=== PATIENT | female | born 1995 | race Caucasian/White ===

== ENCOUNTER 2017-01-16 05:11 | Emergency (ER) | payer OTHER ==
[2017-01-16] MEDS ORDERED: Pepcid 20 MG VIAL IV ONE ×2 (05:20→05:33)
[2017-01-16] MEDS ORDERED: Sodium Chloride 0.9% 1000 ML 1,000 ML IV STA (05:20)
[2017-01-16] MEDS ORDERED: BENADRYL 50 MG/ML IV ONE (05:28)
[2017-01-16] MEDS ORDERED: Hydromorphone 1 mg/ml Ampule IV ONE (05:28)
[2017-01-16] MEDS ORDERED: Sodium Chloride 0.9% 1000 ML 1,000 ML ONE (05:33)
[2017-01-16] MEDS ORDERED: BENADRYL 50 MG/ML ONE (05:33)
[2017-01-16] MEDS ORDERED: Hydromorphone 1 mg/ml Ampule ONE (05:33)
[2017-01-16 05:37] LABS: BASOPHIL % 0.2 % (0.0-0.4); Granulocytes % 55.8 % (36.0-66.0); Lymphocytes % 32.8 % (24.0-44.0); Mean Cell Volume 78.4 fl (78-100); Mean Corpuscular Hemoglobin 26.2 pg (26-32); Mean Platelet Volume 10.3 fl (6-9.5); Monocytes % 8.2 % (0.0-12.0); Platelet Count 298 K/mm3 (150-450); Red Blood Count 5.38 M/mm3 (4.1-5.4); Red Cell Distribution Width 14.9 % (11.5-14.0); White Blood Count 8.2 K/mm3 (4.0-10.5)
--- NOTE | 2017-01-16 05:53 | ERPHSYRPT ---
- History of Present Illness Time Seen by Provider: 01/16/17 05:17 Source: patient, family (father) Patient Subjective Stated Complaint: states that she had onset of epigastric pain at 2200 last night and getting worse through the night with onset of nausea this morning Triage Nursing Assessment: ambulatory to treatment area - steady gait - moves all extremities with equal strength. alert/oriented - tearful affect. skin pwd - no rash/injury. resps easy - shallow per pain Physician History: CC: chest pain Hx: 21 y/o patient of SHASHA Alvarado with sharp rather severe substernal chest pain without radiation. Started in afternoon, worse after eating supper (biscuit & gravy). She takes GERD medication. Prior - bottle feeding. She has no shortness of breath or cough. No hx of this pain in the past. No back pain. Timing/Duration: yesterday Severity: moderate, severe Allergies/Adverse Reactions: No Known Drug Allergies Allergy (Unverified 01/16/17 05:14) Home Medications: No Reportable Medications [No Reported Medications] 01/16/17 [History] Hx Tetanus, Diphtheria Vaccination/Date Given: Yes Hx Influenza Vaccination/Date Given: No Hx Pneumococcal Vaccination/Date Given: No Immunizations Up to Date: Yes - Review of Systems Constitutional: Malaise, No Fever, No Chills Eyes: No Symptoms Ears, Nose, & Throat: No Throat Pain Respiratory: No Cough, No Dyspnea Cardiac: Chest Pain, No Edema, No Palpitations, No Syncope Abdominal/Gastrointestinal: Abdominal Pain (upper), No Nausea, No Vomiting, No Diarrhea Genitourinary Symptoms: No Dysuria, No Hematuria, No Skin: No Rash Neurological: No Headache All Other Systems: Reviewed and Negative - Past Medical History Pertinent Past Medical History: No - Past Surgical History Past Surgical History: Yes Female Surgical History: Section Other Surgical History: TONSILS - Social History Smoking Status: Never smoker Exposure to second hand smoke: No Drug Use: none Patient Lives Alone: No - Female History Hx Last Menstrual Period: 2 weeks - Nursing Vital Signs Nursing Vital Signs: Initial Vital Signs Temperature 98.3 F Temperature Source Oral Pulse Rate [Right Radial] 90 Pulse Rate 58 Respiratory Rate 16 Blood Pressure [Right Arm] 126/84 Pain Intensity 4 - Physical Exam General Appearance: alert Eye Exam: PERRL/EOMI Ears, Nose, Throat Exam: normal ENT inspection, moist mucous membranes Neck Exam: normal inspection, non-tender, supple Respiratory Exam: normal breath sounds, lungs clear Cardiovascular Exam: regular rate/rhythm Gastrointestinal/Abdomen Exam: soft, tenderness (epigastric/RUQ with some soto 's sign), No mass Extremity Exam: normal inspection, normal range of motion, calf tenderness, No pedal edema Neurologic Exam: alert, oriented x 3, cooperative, sensation nml, No motor deficits Skin Exam: warm, dry, No rash SpO2 Interpretation: normal SpO2: 100 Oxygen Delivery: Room Air - Course Nursing assessment & vital signs reviewed: Yes EKG Interpreted by Me: RATE, Sinus Rhythm (62), NORMAL AXIS, NORMAL INTERVALS ( QTc 393), NORMAL QRS, NORMAL ST-T - Radiology Exams AAS X-ray Interpretation: Reviewed by me, Negative, No Pneumothorax, Nml Mediastinum Ordered Tests: Active Orders 24 hr Category Date Time Status Clean Catch Urine Specimen STAT Care 01/16/17 05:20 Active EKG-ER Only STAT Care 01/16/17 05:20 Active IV Insertion STAT Care 01/16/17 05:20 Active OBSTR/ACUTE ABDOMEN SERIES Stat Exams 01/16/17 05:28 Taken CBC W DIFF Stat Lab 01/16/17 05:30 Completed CMP Stat Lab 01/16/17 05:30 Completed HCG QUALITATIVE,SERUM Stat Lab 01/16/17 05:30 Completed LIPASE Stat Lab 01/16/17 05:30 Completed UA Stat Lab 01/16/17 06:15 Completed Medication Summary Discontinued Medications Generic Name Dose Route Start Last Admin Trade Name Erosq PRN Reason Stop Dose Admin Diphenhydramine HCl 25 mg 01/16/17 05:28 01/16/17 05:43 Benadryl 50 Mg/Ml IV 01/16/17 05:29 25 mg STAT ONE Administration Diphenhydramine HCl Confirm 01/16/17 05:33 Benadryl 50 Mg/Ml Administered 01/16/17 05:34 Dose 50 mg .ROUTE .STK-MED ONE Famotidine 20 mg 01/16/17 05:20 01/16/17 05:44 Pepcid 20 Mg Vial IV 01/16/17 05:21 20 mg STAT ONE Administration Famotidine Confirm 01/16/17 05:33 Pepcid 20 Mg Vial Administered 01/16/17 05:34 Dose 20 mg IV .STK-MED ONE Hydromorphone HCl 1 mg 01/16/17 05:28 01/16/17 05:44 Hydromorphone 1 Mg/Ml Ampule IV 01/16/17 05:29 1 mg STAT ONE Administration Hydromorphone HCl Confirm 01/16/17 05:33 Hydromorphone 1 Mg/Ml Ampule Administered 01/16/17 05:34 Dose 1 mg .ROUTE .STK-MED ONE Sodium Chloride 1,000 mls @ 999 mls/hr 01/16/17 05:20 01/16/17 05:44 Sodium Chloride 0.9% 1000 Ml IV 01/16/17 06:20 999 mls/hr .Q1H1M STA Administration Sodium Chloride Confirm 01/16/17 05:33 Sodium Chloride 0.9% 1000 Ml Administered 01/16/17 05:34 Dose 1,000 mls @ ud .ROUTE .STK-MED ONE Lab/Rad Data: Laboratory Result Diagrams 01/16/17 05:30 01/16/17 05:30 Laboratory Results 01/16/17 01/16/17 01/16/17 Range/Units 06:15 05:30 05:30 WBC (4.0-10.5) K/mm3 RBC (4.1-5.4) M/mm3 Hgb (12.0-16.0) gm/dl Hct (35-47) % MCV (78-100) fl MCH (26-32) pg MCHC (32-36) g/dl RDW (11.5-14.0) % Plt Count (150-450) K/mm3 MPV (6-9.5) fl Gran % (36.0-66.0) % Lymphocytes % (24.0-44.0) % Monocytes % (0.0-12.0) % Eosinophils % (0.00-5.0) % Basophils % (0.0-0.4) % Basophils # (0-0.4) Sodium 141 (136-145) mEq/L Potassium 4.3 (3.5-5.1) mEq/L Chloride 104 (98-107) mEq/L Carbon Dioxide 25.5 (21-32) mEq/L Anion Gap 15.6 H (5-15) MEQ/L BUN 10 (9-20) mg/dL Creatinine 0.76 (0.55-1.30) mg/dl Estimated GFR > 60 ML/MIN Glucose 108 (70-110) MG/DL Calcium 9.5 (8.5-10.1) mg/dL Total Bilirubin 0.4 (0.2-1.0) mg/dL AST 31 (15-37) U/L ALT 40 (12-78) U/L Alkaline Phosphatase 82 (46-116) U/L Serum Total Protein 7.9 (6.4-8.2) gm/dL Albumin 3.7 (3.4-5.0) g/dL Lipase 219 (73-393) U/L Serum , Qual NEGATIVE (Negative) Ur Collection Type CLEAN CATCH Urine Color YELLOW (YELLOW) Urine Appearance HAZY (CLEAR) Urine pH 5.5 (5-6) Ur Specific [place] >=1.030 (1.005-1.025) Urine Protein NEGATIVE (Negative) Urine Glucose (UA) NEGATIVE (NEGATIVE) mg/dL Urine Ketones NEGATIVE (NEGATIVE) Urine Nitrite NEGATIVE (NEGATIVE) Urine Bilirubin NEGATIVE (NEGATIVE) Urine Urobilinogen 0.2 (0-1) mg/dL Urine WBC (Auto) NEGATIVE (NEGATIVE) Urine RBC (Auto) NEGATIVE (0-5) Juan/ul Specimen Received 01/16/17 0615 01/16/17 Range/Units 05:30 WBC 8.2 (4.0-10.5) K/mm3 RBC 5.38 (4.1-5.4) M/mm3 Hgb 14.1 (12.0-16.0) gm/dl Hct 42.2 (35-47) % MCV 78.4 (78-100) fl MCH 26.2 (26-32) pg MCHC 33.4 (32-36) g/dl RDW 14.9 H (11.5-14.0) % Plt Count 298 (150-450) K/mm3 MPV 10.3 H (6-9.5) fl Gran % 55.8 (36.0-66.0) % Lymphocytes % 32.8 (24.0-44.0) % Monocytes % 8.2 (0.0-12.0) % Eosinophils % 3.0 (0.00-5.0) % Basophils % 0.2 (0.0-0.4) % Basophils # 0.02 (0-0.4) Sodium (136-145) mEq/L Potassium (3.5-5.1) mEq/L Chloride (98-107) mEq/L Carbon Dioxide (21-32) mEq/L Anion Gap (5-15) MEQ/L BUN (9-20) mg/dL Creatinine (0.55-1.30) mg/dl Estimated GFR ML/MIN Glucose (70-110) MG/DL Calcium (8.5-10.1) mg/dL Total Bilirubin (0.2-1.0) mg/dL AST (15-37) U/L ALT (12-78) U/L Alkaline Phosphatase (46-116) U/L Serum Total Protein (6.4-8.2) gm/dL Albumin (3.4-5.0) g/dL Lipase (73-393) U/L Serum , Qual (Negative) Ur Collection Type Urine Color (YELLOW) Urine Appearance (CLEAR) Urine pH (5-6) Ur Specific [place] (1.005-1.025) Urine Protein (Negative) Urine Glucose (UA) (NEGATIVE) mg/dL Urine Ketones (NEGATIVE) Urine Nitrite (NEGATIVE) Urine Bilirubin (NEGATIVE) Urine Urobilinogen (0-1) mg/dL Urine WBC (Auto) (NEGATIVE) Urine RBC (Auto) (0-5) Juan/ul Specimen Received - Progress Progress Note: 01/16/17 06:45 Pt feeling better after meds. LAbs reassuring. She had no shortness of breath to suggest PE. Possibly GERD/esophagitis vs gallbladder bililary colic. Abd soft without guarding or tenderness on recheck examination. Will release with instructions. May mai from OP GB sonogram. Counseled pt/family regarding: lab results, diagnosis, need for follow-up, rad results - Departure Time of Disposition: 06:50 Departure Disposition: Home Clinical Impression: Chest pain Condition: Stable Critical Care Time: No Referrals: KOBI ALVARADO [Primary Care Provider] - Instructions: Atypical Chest Pain Additional Instructions: Industry diet. No driving today and stay with family. REturn for problems or concerns. Contact SHASHA Alvarado to be seen today or Thursday and consider gallbladder sonogram. Take your omeprazole twice a day until you see SHASHA Alvarado.
[2017-01-16 06:11] LABS: ALBUMIN 3.7 g/dL (3.4-5.0); ALKALINE PHOSPHATASE 82 U/L (46-116); ANION GAP 15.6 MEQ/L (5-15); BILIRUBIN,TOTAL 0.4 mg/dL (0.2-1.0); BLOOD UREA NITROGEN 10 mg/dL (9-20); CHLORIDE 104 mEq/L (98-107); Carbon Dioxide 25.5 mEq/L (21-32); Glucose 108 MG/DL (70-110); LIPASE 219 U/L (73-393); Potassium 4.3 mEq/L (3.5-5.1); SGOT/AST 31 U/L (15-37); SGPT/ALT 40 U/L (12-78); SODIUM 141 mEq/L (136-145); Total Protein 7.9 gm/dL (6.4-8.2)
[2017-01-16 06:23] LABS: Collection Type CLEAN CATCH
[2017-01-16 06:24] LABS: COMPLETE URINE MICROSCOPIC? NO; Ph 5.5 (5-6)
[2017-01-16 07:01] VITALS: BP 116/73; PULSE 90; O2SAT 99
--- NOTE | 2017-01-16 09:32 | XRAY ---
Indication: Chest/epigastric pain. History of GERD. Comparison: Chest exam April 01, 2011. 2 views of the abdomen demonstrates mild diffuse scattered colonic fecal debris. No focal bowel dilatation, obstruction, or free air. Solid organs and osseous structures unremarkable. Single frontal chest again demonstrates normal heart, lungs, and bony thorax. Impression: 1. Mild fecal stasis without obstruction. 2. Stable normal 1 view chest.
== END 2017-01-16 07:01 | disposition home or self-care (01) ==
LOC: ED 05:11
DX: R07.9 Chest pain, unspecified (principal); R53.81 Other malaise; R10.10 Upper abdominal pain, unspecified
CPT/HCPCS: 36000; 36415; 74022; 80053; 81002; 83690; 84703; 85025; 93005; 93041; 96360; 96374; 96375; 99284; 99285; J1170; J1200

== ENCOUNTER 2017-03-09 07:18 | Emergency (ER) | payer OTHER ==
[2017-03-09 07:32] VITALS: BP 137/78; PULSE 76; O2SAT 100
[2017-03-09] MEDS ORDERED: GI COCKTAIL 60ML (Belladonn/Phenobarb/Lidoc PO ONE (07:45)
[2017-03-09] MEDS ORDERED: Sodium Chloride 0.9% 1000 ML 1,000 ML IV SCH (07:45)
[2017-03-09] MEDS ORDERED: PROTONIX 40 MG IV IV ONE (07:46)
--- NOTE | 2017-03-09 07:48 | ERPHSYRPT ---
- History of Present Illness Time Seen by Provider: 03/09/17 07:40 Historian: patient Exam Limitations: clinical condition Patient Subjective Stated Complaint: pt states she has a galbladder us ordered for today at 0800. pt states she began having mid back pain last pm and wanted seen in the ER. pt states her pain started after eating pizza last pm. Triage Nursing Assessment: pt pink, warm, dry, abdomen soft nontender. pt afebrile. Physician History: Patient complains of acute onset of substernal chest pain associated with right shoulder blade since 5 AM today, sharp character. Patient denies associated nausea, vomiting, abdominal pain, dyspnea, diaphoresis, palpitations or cough. Patient states she is scheduled for an outpatient gallbladder ultrasound at 0800. Timing/Duration: today Activities at Onset: none Quality: stabbing Location: substernal, other (left shoulder blade) Chest Pain Radiation: no radiation Severity of Pain-Max: moderate Severity of Pain-Current: moderate Modifying Factors: Improves With: change in position Associated Symptoms: hurts to breathe Prior Chest Pain/Cardiac Workup: recently seen/treated Nitro Today/Relief: no nitro taken today Aspirin Treatment Today: no aspirin today Allergies/Adverse Reactions: No Known Drug Allergies Allergy (Unverified 03/09/17 07:32) Home Medications: Norgestimate-Ethinyl Estradiol [Ortho Tri-Cyclen 28 Tablet] 1 each PO UD [History] Hx Tetanus, Diphtheria Vaccination/Date Given: Yes (up to date) Hx Influenza Vaccination/Date Given: No Hx Pneumococcal Vaccination/Date Given: No Immunizations Up to Date: Yes - Review of Systems Constitutional: No Fever, No Chills Eyes: No Symptoms Ears, Nose, & Throat: No Symptoms Respiratory: No Symptoms, No Cough, No Dyspnea Cardiac: Chest Pain, No Edema, No Syncope Abdominal/Gastrointestinal: No Symptoms, No Abdominal Pain, No Nausea, No Vomiting, No Diarrhea Genitourinary Symptoms: No Symptoms, No Dysuria Musculoskeletal: No Back Pain (right shoulder blade pain), No Neck Pain Skin: No Symptoms, No Rash Neurological: No Symptoms, No Dizziness, No Focal Weakness, No Sensory Changes Psychological: No Symptoms Endocrine: No Symptoms Hematologic/Lymphatic: No Symptoms Immunological/Allergic: No Symptoms All Other Systems: Reviewed and Negative - Past Medical History Pertinent Past Medical History: No - Past Surgical History Past Surgical History: Yes Female Surgical History: Section Other Surgical History: TONSILS - Social History Smoking Status: Never smoker Exposure to second hand smoke: No Drug Use: none Patient Lives Alone: No - Female History Hx Last Menstrual Period: 14 february 2017 - Nursing Vital Signs Temperature: 98.1 F Temperature Source: Oral Pulse Rate: 76 Respiratory Rate: 18 Pain Intensity: 8 - Physical Exam General Appearance: no apparent distress, alert Eye Exam: PERRL/EOMI, eyes nml inspection Ears, Nose, Throat Exam: normal ENT inspection, moist mucous membranes Neck Exam: normal inspection, non-tender, supple, full range of motion Respiratory Exam: normal breath sounds, chest tenderness (tenderness over right scapula), lungs clear, No respiratory distress Cardiovascular Exam: regular rate/rhythm, normal heart sounds Gastrointestinal/Abdomen Exam: soft, normal bowel sounds, tenderness (there is minimal right upper abdominal tenderness upon deep palpation), No mass Back Exam: normal inspection, No CVA tenderness, No vertebral tenderness Extremity Exam: normal inspection, normal range of motion Neurologic Exam: alert, oriented x 3, cooperative, normal mood/affect, sensation nml, No motor deficits Skin Exam: normal color, warm, dry SpO2 Interpretation: normal SpO2: 100 Oxygen Delivery: Room Air Ordered Tests: Active Orders 24 hr Category Date Time Status [place] Operator STAT Care 03/09/17 07:43 Active Clean Catch Urine Specimen STAT Care 03/09/17 07:43 Active EKG-ER Only STAT Care 03/09/17 07:43 Active IV Insertion STAT Care 03/09/17 07:43 Active TROPONIN Q3H Lab 03/09/17 10:45 Ordered TROPONIN Q3H Lab 03/09/17 13:45 Ordered TROPONIN Q3H Lab 03/09/17 16:45 Ordered TROPONIN Q3H Lab 03/09/17 19:45 Ordered Medication Summary Discontinued Medications Generic Name Dose Route Start Last Admin Trade Name Freq PRN Reason Stop Dose Admin Belladonna Alkaloids/Phenobarbital 60 ml 03/09/17 07:45 Gi Cocktail 60ml (Belladonn/Phenobarb/Lidoc* PO 03/09/17 07:46 STAT ONE Sodium Chloride 1,000 mls @ 250 mls/hr 03/09/17 07:45 Sodium Chloride 0.9% 1000 Ml IV 04/08/17 07:44 .Q4H MADDIE Pantoprazole Sodium 40 mg 03/09/17 07:46 Protonix 40 Mg Iv IV 03/09/17 07:47 STAT ONE - Progress Progress Note: 03/09/17 08:09 patient left the emergency room AMA for her scheduled 0800 gall bladder ultrasound - Departure Time of Disposition: 07:57 Departure Disposition: AMA Clinical Impression: CHEST PAIN Condition: Stable Critical Care Time: No Referrals: KOBI NEWMAN [Primary Care Provider] - Additional Instructions: RETURN TO EMERGENCY FOR CHEST PAIN.
== END 2017-03-09 07:58 | disposition left against medical advice (07) ==
LOC: ED 07:18
DX: R07.89 Other chest pain (principal)
CPT/HCPCS: 99281; A9270-GY

== ENCOUNTER 2017-09-01 06:43 | Emergency (ER) | payer OTHER ==
[2017-09-01] MEDS ORDERED: Sodium Chloride 0.9% 1000 ML 1,000 ML IV STA (07:17)
--- NOTE | 2017-09-01 07:22 | ERPHSYRPT ---
- History of Present Illness Time Seen by Provider: 09/01/17 07:09 Historian: patient Exam Limitations: no limitations Patient Subjective Stated Complaint: Pt with C/O abd pain and back pain with urinary frequency x 8 days. Went to [facility] yesterday and they performed a CXR and a urine test. Period is 12 days late. Took 3 tests at 2 days late and all were negative. Pain is sharp in nature and goes from abd through to back. Denies N/V/D. Triage Nursing Assessment: Pt alert, oriented, answers all questions appropriately. Pt ambulatory to tx room steady gait noted. Resps non-labored. ABD soft, tender LLQ and suprapubic. Bowel sounds present all quadrants. Physician History: 22-year-old white female arrives with complaint of pain and suprapubic region radiating to her back symptoms for one week. Patient states she has been having frequency with urination She denies any blood or dysuriria, no vomiting no diarrhea no melena no hematochezia no vaginal discharge. Past medical history patient denies Past surgical history includes tonsils and adenoids, , cholecystectomy Patient states she was seen by [facility] one week ago and told if she continued to have abdominal pain she needed to go to the emergency room. Patient apparently is a patient of Dr. Khalils. Timing/Duration: week(s) (one week) Activities at Onset: none Quality: cramping Abdominal Pain Onset Location: suprapubic Pain Radiation: back Severity of Pain-Max: moderate Severity of Pain-Current: moderate Modifying Factors: Improves With: nothing Associated Symptoms: other (frequency of urination), No chest pain, No diaphoresis, No diarrhea, No fever/chills, No fatigue, No headache, No heartburn , No loss of appetite, No nausea, No neck pain, No rash, No shortness of breath , No syncope, No vomiting, No weakness Previous symptoms: other (seen a week ago at [facility] for the same) Allergies/Adverse Reactions: No Known Drug Allergies Allergy (Verified 09/01/17 07:01) Home Medications: Norgestimate-Ethinyl Estradiol [Ortho Tri-Cyclen 28 Tablet] 1 each PO UD [History] Phentermine HCl [Adipex-P] 37.5 mg PO DAILY 09/01/17 [History] Hx Tetanus, Diphtheria Vaccination/Date Given: Yes (up to date) Hx Influenza Vaccination/Date Given: No Hx Pneumococcal Vaccination/Date Given: No Immunizations Up to Date: Yes - Review of Systems Constitutional: No Fever, No Chills Eyes: No Symptoms Ears, Nose, & Throat: No Symptoms Respiratory: No Cough, No Dyspnea Cardiac: No Chest Pain, No Edema, No Syncope Abdominal/Gastrointestinal: Abdominal Pain, No Nausea, No Vomiting, No Diarrhea , No Constipation, No Hematemesis, No Hematochezia, No Melena, No Dysphagia Genitourinary Symptoms: Frequency, No Dysuria, No Hematuria, No Hesitancy, No Incontinence, No Urgency, No Urinary Retention, No Flank Pain, No Menorrhagia, No , No Vaginal Bleeding, No Vaginal Discharge, No Vaginal Itching Musculoskeletal: No Back Pain, No Neck Pain Skin: No Rash Neurological: No Dizziness, No Focal Weakness, No Sensory Changes Psychological: No Symptoms Endocrine: No Symptoms All Other Systems: Reviewed and Negative - Past Medical History Pertinent Past Medical History: No - Past Surgical History Past Surgical History: Yes Female Surgical History: Section Other Surgical History: TONSILS, gallbladder, x 2 - Social History Smoking Status: Never smoker Exposure to second hand smoke: No Drug Use: none Patient Lives Alone: No - Female History Hx Last Menstrual Period: 07/25/17 - Nursing Vital Signs Nursing Vital Signs: Initial Vital Signs Temperature 97.9 F 09/01/17 06:55 Pulse Rate 78 09/01/17 06:55 Respiratory Rate 16 09/01/17 06:55 Blood Pressure 122/79 09/01/17 06:55 O2 Sat by Pulse Oximetry 99 09/01/17 06:55 Pain Scale Pain Intensity 7 - Physical Exam General Appearance: no apparent distress, alert Eye Exam: PERRL/EOMI, eyes nml inspection Ears, Nose, Throat Exam: normal ENT inspection, pharynx normal, moist mucous membranes Neck Exam: normal inspection, non-tender, supple, full range of motion Respiratory Exam: normal breath sounds, lungs clear, No respiratory distress Cardiovascular Exam: regular rate/rhythm, normal heart sounds Gastrointestinal/Abdomen Exam: soft, No tenderness, No mass Back Exam: normal inspection, normal range of motion, No CVA tenderness, No vertebral tenderness Extremity Exam: normal inspection, normal range of motion, pelvis stable Neurologic Exam: alert, oriented x 3, cooperative, normal mood/affect, nml cerebellar function, sensation nml, No motor deficits Skin Exam: normal color, warm, dry SpO2 Interpretation: normal (99%) SpO2: 99 Oxygen Delivery: Room Air Ordered Tests: Active Orders 24 hr Category Date Time Status IV Insertion STAT Care 09/01/17 07:17 Active AMYLASE Stat Lab 09/01/17 07:40 Completed CBC W DIFF Stat Lab 09/01/17 07:17 Completed CMP Stat Lab 09/01/17 07:40 Completed CULTURE,URINE Stat Lab 09/01/17 07:40 Received HCG QUALITATIVE,SERUM Stat Lab 09/01/17 07:40 Completed LIPASE Stat Lab 09/01/17 07:40 Completed UA W/ MICROSCOPIC Stat Lab 09/01/17 07:40 Completed Medication Summary Discontinued Medications Generic Name Dose Route Start Last Admin Trade Name Freq PRN Reason Stop Dose Admin Sodium Chloride 1,000 mls @ 999 mls/hr 09/01/17 07:17 09/01/17 08:03 Sodium Chloride 0.9% 1000 Ml IV 09/01/17 08:17 999 mls/hr .Q1H1M STA Administration Sodium Chloride Confirm 09/01/17 07:51 Sodium Chloride 0.9% 1000 Ml Administered 09/01/17 07:52 Dose 1,000 mls @ ud .ROUTE .STK-MED ONE Ceftriaxone Sodium/Dextrose 1 g in 50 mls @ 100 mls/hr 09/01/17 08:28 08:32 Rocephin 1 Gm-D5w 50 Ml Bag IV 09/01/17 08:57 100 mls/hr STAT STA Administration Ceftriaxone Sodium/Dextrose Confirm 09/01/17 08:30 Rocephin 1 Gm-D5w 50 Ml Bag Administered 09/01/17 08:31 Dose 1 g in 50 mls @ ud IV .STK-MED ONE Lab/Rad Data: Laboratory Result Diagrams 09/01/17 07:17 09/01/17 07:40 Laboratory Results 09/01/17 09/01/17 09/01/17 Range/Units 07:40 07:40 07:40 WBC (4.0-10.5) K/mm3 RBC (4.1-5.4) M/mm3 Hgb (12.0-16.0) gm/dl Hct (35-47) % MCV (78-100) fl MCH (26-32) pg MCHC (32-36) g/dl RDW (11.5-14.0) % Plt Count (150-450) K/mm3 MPV (6-9.5) fl Gran % (36.0-66.0) % Lymphocytes % (24.0-44.0) % Monocytes % (0.0-12.0) % Eosinophils % (0.00-5.0) % Basophils % (0.0-0.4) % Basophils # (0-0.4) Sodium 141 (136-145) mEq/L Potassium 3.9 (3.5-5.1) mEq/L Chloride 106 (98-107) mEq/L Carbon Dioxide 27.1 (21-32) mEq/L Anion Gap 12.0 (5-15) MEQ/L BUN 11 (9-20) mg/dL Creatinine 0.59 (0.55-1.30) mg/dl Estimated GFR > 60 ML/MIN Glucose 94 (70-110) MG/DL Calcium 9.0 (8.5-10.1) mg/dL Total Bilirubin 0.50 (0.2-1.0) mg/dL AST 15 (15-37) U/L ALT 7 L (12-78) U/L Alkaline Phosphatase 63 (46-116) U/L Serum Total Protein 6.9 (6.4-8.2) gm/dL Albumin 3.7 (3.4-5.0) g/dL Amylase 65 (25-115) U/L Lipase 141 (73-393) U/L Serum , Qual NEGATIVE (Negative) Ur Collection Type CLEAN CATCH Urine Color YELLOW (YELLOW) Urine Appearance CLOUDY (CLEAR) Urine pH 6.0 (5-6) Ur Specific [place] 1.015 (1.005-1.025) Urine Protein 30 (Negative) Urine Ketones NEGATIVE (NEGATIVE) Urine Blood 50 (0-5) Juan/ul Urine Nitrite POSITIVE (NEGATIVE) Urine Bilirubin NEGATIVE (NEGATIVE) Urine Urobilinogen NORMAL (0-1) mg/dL Ur Leukocyte Esterase 2+ (NEGATIVE) Urine Microscopic RBC 10-15 (0-2) /HPF Urine Microscopic WBC >100 (0-5) /HPF Ur Epithelial Cells FEW (FEW) /HPF Urine Bacteria MODERATE (NEGATIVE) /HPF WBC Casts 0-2 (NEGATIVE) /LPF Urine Culture Reflexed YES (NO) Urine Glucose NEGATIVE (NEGATIVE) mg/dL Specimen Received 09/01/17 0800 09/01/17 Range/Units 07:17 WBC 7.4 (4.0-10.5) K/mm3 RBC 4.85 (4.1-5.4) M/mm3 Hgb 12.1 (12.0-16.0) gm/dl Hct 38.8 (35-47) % MCV 80.0 (78-100) fl MCH 24.9 L (26-32) pg MCHC 31.2 L (32-36) g/dl RDW 15.3 H (11.5-14.0) % Plt Count 248 (150-450) K/mm3 MPV 10.1 H (6-9.5) fl Gran % 60.6 (36.0-66.0) % Lymphocytes % 31.1 (24.0-44.0) % Monocytes % 6.4 (0.0-12.0) % Eosinophils % 1.6 (0.00-5.0) % Basophils % 0.3 (0.0-0.4) % Basophils # 0.02 (0-0.4) Sodium (136-145) mEq/L Potassium (3.5-5.1) mEq/L Chloride (98-107) mEq/L Carbon Dioxide (21-32) mEq/L Anion Gap (5-15) MEQ/L BUN (9-20) mg/dL Creatinine (0.55-1.30) mg/dl Estimated GFR ML/MIN Glucose (70-110) MG/DL Calcium (8.5-10.1) mg/dL Total Bilirubin (0.2-1.0) mg/dL AST (15-37) U/L ALT (12-78) U/L Alkaline Phosphatase (46-116) U/L Serum Total Protein (6.4-8.2) gm/dL Albumin (3.4-5.0) g/dL Amylase (25-115) U/L Lipase (73-393) U/L Serum , Qual (Negative) Ur Collection Type Urine Color (YELLOW) Urine Appearance (CLEAR) Urine pH (5-6) Ur Specific [place] (1.005-1.025) Urine Protein (Negative) Urine Ketones (NEGATIVE) Urine Blood (0-5) Juan/ul Urine Nitrite (NEGATIVE) Urine Bilirubin (NEGATIVE) Urine Urobilinogen (0-1) mg/dL Ur Leukocyte Esterase (NEGATIVE) Urine Microscopic RBC (0-2) /HPF Urine Microscopic WBC (0-5) /HPF Ur Epithelial Cells (FEW) /HPF Urine Bacteria (NEGATIVE) /HPF WBC Casts (NEGATIVE) /LPF Urine Culture Reflexed (NO) Urine Glucose (NEGATIVE) mg/dL Specimen Received - Progress Progress: improved Progress Note: 09/01/17 08:28 22-year-old white female with complaint of suprapubic abdominal discomfort frequency of urination pain radiating to her back symptoms for a week. Patient's receiving IV fluids urinalysis positive for greater than 100 white cells per high-power field. HCG is negative chemistry is pending. Will give patient 1 g of Rocephin plan home with Bactrim Walton for pain. - Departure Time of Disposition: 08:29 Departure Disposition: Home Clinical Impression: Suprapubic abdominal pain UTI (urinary tract infection) Qualifiers: Urinary tract infection type: site unspecified Hematuria presence: with hematuria Qualified Code(s): N39.0 - Urinary tract infection, site not specified Condition: Fair Critical Care Time: No Referrals: OLVIN DANG [Primary Care Provider] - Instructions: Abdominal Pain-Adult Additional Instructions: Return home. Plenty of fluids. Clear fluids only 24-48 hours if abdominal pain. Bactrim DS one orally twice a day for 10 days. Walton 5/325 #15 one orally every 4-6 hours as needed for pain. Follow-up with your family doctor. Return for acute distress or for severe symptoms. Prescriptions: Hydrocodone Bit/Acetaminophen [Walton 5/325Mg] 1 tab PO Q4-6HPRN PRN #15 tablet PRN Reason: Pain Smz/Tmp Ds Tablet [Bactrim Ds Tablet] 1 tab PO BID #20 tablet
[2017-09-01] MEDS ORDERED: Sodium Chloride 0.9% 1000 ML 1,000 ML ONE (07:51)
[2017-09-01 08:04] LABS: BASOPHIL % 0.3 % (0.0-0.4); Eosinophil % 1.6 % (0.00-5.0); Granulocytes % 60.6 % (36.0-66.0); Lymphocytes % 31.1 % (24.0-44.0); Mean Corpuscular Hemoglobin 24.9 pg (26-32); Mean Platelet Volume 10.1 fl (6-9.5); Monocytes % 6.4 % (0.0-12.0); Platelet Count 248 K/mm3 (150-450); Red Blood Count 4.85 M/mm3 (4.1-5.4); Red Cell Distribution Width 15.3 % (11.5-14.0); White Blood Count 7.4 K/mm3 (4.0-10.5)
[2017-09-01 08:13] LABS: Collection Type CLEAN CATCH
[2017-09-01 08:14] LABS: Bilirubin NEGATIVE (NEGATIVE); Blood 50 Ery/ul (0-5); COMPLETE URINE MICROSCOPIC? YES; Glucose NEGATIVE (NEGATIVE); Leukocyte Esterase 2+ (NEGATIVE)
[2017-09-01 08:15] LABS: Epithelial Cells FEW /HPF (FEW); WBC >100 /HPF (0-5)
[2017-09-01 08:16] LABS: ADD URINE CULTURE? YES (NO); Bacteria MODERATE /HPF (NEGATIVE)
[2017-09-01] MEDS ORDERED: ROCEPHIN 1 Gm-D5w 50 ml Bag** 1 G/50 ML IVPB IV STA (08:28)
[2017-09-01 08:29] VITALS: PULSE 60
[2017-09-01 08:29] LABS: ALBUMIN 3.7 g/dL (3.4-5.0); ALKALINE PHOSPHATASE 63 U/L (46-116); BLOOD UREA NITROGEN 11 mg/dL (9-20); CHLORIDE 106 mEq/L (98-107); Carbon Dioxide 27.1 mEq/L (21-32); Glucose 94 MG/DL (70-110); LIPASE 141 U/L (73-393); Potassium 3.9 mEq/L (3.5-5.1); SGOT/AST 15 U/L (15-37); SGPT/ALT 7 U/L (12-78); SODIUM 141 mEq/L (136-145); Total Protein 6.9 gm/dL (6.4-8.2)
[2017-09-01] MEDS ORDERED: ROCEPHIN 1 Gm-D5w 50 ml Bag** 1 G/50 ML IVPB IV ONE (08:30)
[2017-09-01 09:23] VITALS: BP 116/82
[2017-09-01 09:56] VITALS: O2SAT 99
== END 2017-09-01 09:34 | disposition home or self-care (01) ==
LOC: ED 06:43
DX: N39.0 Urinary tract infection, site not specified (principal); R10.9 Unspecified abdominal pain; M54.9 Dorsalgia, unspecified; R35.0 Frequency of micturition
CPT/HCPCS: 36000; 36415; 80053; 81000; 82150; 83690; 84703; 85025; 87077; 87086; 87186; 96360; 96365; 99284; J0696

== ENCOUNTER 2021-08-13 20:38 | Emergency (ER) | payer BC ==
[2021-08-13] MEDS ORDERED: Sodium Chloride 0.9% 1000 ML 1,000 ML IV SCH (21:15)
[2021-08-13] MEDS ORDERED: Sodium Chloride 0.9% 1000 ML 1,000 ML ONE (21:21)
[2021-08-13 21:47] LABS: Appearance CLOUDY (CLEAR); Bacteria MODERATE /HPF (NEGATIVE); Bilirubin NEGATIVE (NEGATIVE); Blood MODERATE Ery/ul (0-5); Glucose NEGATIVE (NEGATIVE); Ketones NEGATIVE (NEGATIVE); Leukocyte Esterase TRACE (NEGATIVE); Mucus SLIGHT /HPF (NEGATIVE); Nitrite NEGATIVE (NEGATIVE); Protein,Urine Dip NEGATIVE (Negative); Specific Gravity 1.019 (1.005-1.025); Urobilinogen NEGATIVE mg/dL (0-1)
[2021-08-13 21:47] LABS: Absolute Neutrophil Ct (ANC) 3.88 (1.4-6.9); BASOPHIL % 0.4 % (0.0-0.4); Basophil (Absolute #) 0.03 (0-0.4); Eosinophil % 1.2 % (0.00-5.0); Eosinophil (Absolute #) 0.08 (0-0.5); Hematocrit 37.6 % (35-47); Hemoglobin 11.4 gm/dl (12.0-16.0); Lymphocyte (Absolute #) 2.21 (1.0-4.6); Lymphocytes % 32.5 % (24.0-44.0); Mean Cell Volume 72.9 fl (78-100); Mean Corpuscular Hemoglobin 22.1 pg (26-32); Mean Corpuscular Hgb Concent. 30.3 g/dl (32-36); Mean Platelet Volume 9.8 fl (7.5-11.0); Monocytes % 8.8 % (0.0-12.0); Neutrophil % 57.1 % (36.0-66.0); Platelet Count 370 K/mm3 (150-450); Red Blood Count 5.16 M/mm3 (4.1-5.4); Red Cell Distribution Width 17.1 % (11.5-14.0); White Blood Count 6.8 K/mm3 (4.0-10.5)
[2021-08-13 21:53] VITALS: O2SAT 99
[2021-08-13 21:54] LABS: ALBUMIN 4.3 g/dL (3.5-5.0); ALKALINE PHOSPHATASE 54 U/L (38-126); BLOOD UREA NITROGEN 10 mg/dL (7-17); CHLORIDE 102 mmol/L (98-107); Calcium 9.4 mg/dL (8.4-10.2); Carbon Dioxide 25 mmol/L (22-30); Creatinine 1 0.58 mg/dL (0.52-1.04); EST GLOMERULAR FILTRATION RATE > 60.0 ML/MIN; Glucose 95 mg/dL (74-106); Potassium 3.8 mmol/L (3.5-5.1); SGOT/AST 22 U/L (14-36); SGPT/ALT 20 U/L (0-35); SODIUM 138 mmol/L (137-145); Total Protein 7.3 g/dL (6.3-8.2)
[2021-08-13 22:37] LABS: ABO TYPING A; Antibody Screen NEGATIVE (NEGATIVE); RH TYPING POSITIVE
--- NOTE | 2021-08-13 23:01 | ERPHSYRPT ---
- History of Present Illness Time Seen by Provider: 08/13/21 20:45 Source: patient Exam Limitations: no limitations Patient Subjective Stated Complaint: Patient states " I have been having dark brown and some red blood noted when I wipe myself on and off for the last 4 day s. I called to make appt with my [facility] and they instructed me to go to ER." Triage Nursing Assessment: Patient arrived to ED and ambulated back to room without difficulty. Patient A/O times 4. Patient able to follow instructions without difficulty. Patient told RN she has been having some mild dark brown blood when she wipes for about 4 days. Patient states sometimes when she wipes it is a little more red in color. Patient with ABD tenderness upon palpitation. Patient stated it ramírez and hurts when she pees. Patient stated she has had some N/V but denies any loose stools. Patient states appetite and fluid inatke has been normal. Patient denies any fevers. Patient afebrile upon arrival. Patient denies any sexual activity in last 24-48 hours. Physician History: Patient is a 26-year-old female M1 currently. LMP was May 20. Both pat ient's deliveries were . Patient states she had a home test recently. Patient concerned that she has been experiencing intermittent vaginal spotting x4 days. The spotting is observed particularly when she wipes. No active bleeding. Vague lower abdominal cramping. Patient called her OB doctor today who advised her to come to our ED for an evaluation. Patient also advises she has been experiencing some mild dysuria. Patient felt little little nauseous and vomited once yesterday. No fever. Patient symptoms are mild to moderate in intensity. No specific worsening or improving factors. Patient states she is otherwise healthy. She is eating normally. She voices no other complaints. Timing/Duration: day(s) (4 days) Severity: mild Modifying Factors: Improves With: nothing Associated Symptoms: nausea, vomiting, No shortness of breath, No diaphoresis, No fever, No syncope, No seizure Allergies/Adverse Reactions: No Known Drug Allergies Allergy (Verified 09/01/17 07:01) Home Medications: Vits W-Ca,Fe,FA(<1Mg) [] 1 tab PO DAILY 08/13/21 [History] Hx Tetanus, Diphtheria Vaccination/Date Given: Yes Hx Influenza Vaccination/Date Given: No Hx Pneumococcal Vaccination/Date Given: No Immunizations Up to Date: Yes Travel Risk - International Travel Have you traveled outside of the country in past 3 weeks: No - Coronavirus Screening Are you exhibiting any of the following symptoms?: No Close contact with a COVID-19 positive Pt in past 14-21 Days: No - Vaccine Status Have you recieved a Covid-19 vaccination: No - Review of Systems Constitutional: No Symptoms, No Fever, No Chills Eyes: No Symptoms Ears, Nose, & Throat: No Symptoms Respiratory: No Symptoms, No Cough, No Dyspnea Cardiac: No Symptoms, No Chest Pain, No Edema, No Syncope Abdominal/Gastrointestinal: No Symptoms, No Abdominal Pain, No Nausea, No Vomiting, No Diarrhea Genitourinary Symptoms: No Symptoms, No Dysuria Musculoskeletal: No Symptoms, No Back Pain, No Neck Pain Skin: No Symptoms, No Rash Neurological: No Symptoms, No Dizziness, No Focal Weakness, No Sensory Changes Psychological: No Symptoms Endocrine: No Symptoms Hematologic/Lymphatic: No Symptoms Immunological/Allergic: No Symptoms All Other Systems: Reviewed and Negative - Past Medical History Pertinent Past Medical History: No Neurological History: No Pertinent History ENT History: No Pertinent History Cardiac History: No Pertinent History Respiratory History: No Pertinent History Endocrine Medical History: No Pertinent History Musculoskeletal History: No Pertinent History GI Medical History: No Pertinent History History: No Pertinent History Psycho-Social History: No Pertinent History Female Reproductive Disorders: No Pertinent History - Past Surgical History Past Surgical History: Yes Neuro Surgical History: No Pertinent History Cardiac: No Pertinent History Respiratory: No Pertinent History Gastrointestinal: Cholecystectomy Genitourinary: No Pertinent History Female Surgical History: Section Other Surgical History: TONSILS, gallbladder, x 2 - Social History Smoking Status: Never smoker Exposure to second hand smoke: Yes Drug Use: none Patient Lives Alone: No - Female History Hx Last Menstrual Period: 05/20/21 Hx Now: Yes - Nursing Vital Signs Nursing Vital Signs: Initial Vital Signs Temperature 98.4 F 08/13/21 20:38 Pulse Rate 81 08/13/21 20:38 Respiratory Rate 18 08/13/21 20:38 Blood Pressure 134/82 08/13/21 20:38 O2 Sat by Pulse Oximetry 97 08/13/21 20:38 Pain Scale Pain Intensity 4 - Physical Exam General Appearance: no apparent distress, alert Eye Exam: PERRL/EOMI, eyes nml inspection Ears, Nose, Throat Exam: normal ENT inspection, TMs normal, pharynx normal, moist mucous membranes Neck Exam: normal inspection, non-tender, supple, full range of motion Respiratory Exam: normal breath sounds, lungs clear, airway intact, No respiratory distress Cardiovascular Exam: regular rate/rhythm, normal heart sounds, normal peripheral pulses Gastrointestinal/Abdomen Exam: soft, normal bowel sounds, No tenderness, No mass Pelvic Exam: vaginal bleeding (Scant blood in vaginal vault. No CMT.), No adn exal tenderness, No uterine tenderness (Normal anatomy. No foul odors. No vaginal lesions observed. Cervical os is closed.) Back Exam: normal inspection, normal range of motion, No CVA tenderness, No vertebral tenderness Extremity Exam: normal inspection, normal range of motion, pelvis stable Neurologic Exam: alert, oriented x 3, cooperative, normal mood/affect, sensation nml, No motor deficits Skin Exam: normal color, warm, dry, No rash Lymphatic Exam: No adenopathy SpO2 Interpretation: normal SpO2: 99 O2 Delivery: Room Air - Course Nursing assessment & vital signs reviewed: Yes - Radiology Ultrasound Exam Pelvis Ultrasound: discussed w/radiologist (Per the delivery table feeder patient is 5 weeks and 2 days. Gestational sac observed.) Ordered Tests: Active Orders 24 hr Category Date Time Status IV Insertion STAT Care 08/13/21 21:02 Active OB <14 WKS 1ST GESTATION [US] Stat Exams 08/13/21 22:29 Taken CBC W DIFF Stat Lab 08/13/21 21:20 Completed CMP Stat Lab 08/13/21 21:20 Completed CULTURE,URINE Stat Lab 08/13/21 21:16 Received HCG, Quantitative (Inhouse) Stat Lab 08/13/21 21:20 Completed HCG,QUALITATIVE URINE Stat Lab 08/13/21 21:16 Completed UA W/RFX UR CULTURE Stat Lab 08/13/21 21:16 Completed Wet Prep Stat Lab 08/13/21 22:48 Ordered Medication Summary Generic Name Dose Route Start Last Admin Trade Name Freq PRN Reason Stop Dose Admin Sodium Chloride 1,000 mls @ 100 mls/hr 08/13/21 21:15 08/13/21 21:22 Sodium Chloride 0.9% 1000 Ml IV 09/12/21 21:14 100 mls/hr .Q10H MADDIE Administration Lab/Rad Data: Laboratory Result Diagrams 08/13/21 21:20 08/13/21 21:20 Laboratory Results 08/13/21 08/13/21 08/13/21 Range/Units 21:30 21:20 21:20 WBC (4.0-10.5) K/mm3 RBC (4.1-5.4) M/mm3 Hgb (12.0-16.0) gm/dl Hct (35-47) % MCV (78-100) fl MCH (26-32) pg MCHC (32-36) g/dl RDW (11.5-14.0) % Plt Count (150-450) K/mm3 MPV (7.5-11.0) fl Gran % (36.0-66.0) % Eos # (Auto) (0-0.5) Absolute Lymphs (auto) (1.0-4.6) Absolute Monos (auto) (0.0-1.3) Lymphocytes % (24.0-44.0) % Monocytes % (0.0-12.0) % Eosinophils % (0.00-5.0) % Basophils % (0.0-0.4) % Absolute Granulocytes (1.4-6.9) Basophils # (0-0.4) Sodium 138 (137-145) mmol/L Potassium 3.8 (3.5-5.1) mmol/L Chloride 102 (98-107) mmol/L Carbon Dioxide 25 (22-30) mmol/L Anion Gap 15.0 (5-15) MEQ/L BUN 10 (7-17) mg/dL Creatinine 0.58 (0.52-1.04) mg/dL Estimated GFR > 60.0 ML/MIN Glucose 95 (74-106) mg/dL Calcium 9.4 (8.4-10.2) mg/dL Total Bilirubin 0.40 (0.2-1.3) mg/dL AST 22 (14-36) U/L ALT 20 (0-35) U/L Alkaline Phosphatase 54 (38-126) U/L Serum Total Protein 7.3 (6.3-8.2) g/dL Albumin 4.3 (3.5-5.0) g/dL Beta HCG, Quant 2271.6 mIU/ml Urine Color (YELLOW) Urine Appearance (CLEAR) Urine pH (5-6) Ur Specific [place] (1.005-1.025) Urine Protein (Negative) Urine Ketones (NEGATIVE) Urine Blood (0-5) Juan/ul Urine Nitrite (NEGATIVE) Urine Bilirubin (NEGATIVE) Urine Urobilinogen (0-1) mg/dL Ur Leukocyte Esterase (NEGATIVE) Urine WBC (Auto) (0-5) /HPF Urine RBC (Auto) (0-2) /HPF U Epithel Cells (Auto) (FEW) /HPF Urine Bacteria (Auto) (NEGATIVE) /HPF Urine Mucus (Auto) (NEGATIVE) /HPF Urine Culture Reflexed (NO) Urine Glucose (NEGATIVE) mg/dL Urine HCG, Qual (Negative) ABO Group A Rh Factor POSITIVE Antibody Screen NEGATIVE (NEGATIVE) 08/13/21 08/13/21 08/13/21 Range/Units 21:20 21:16 21:16 WBC 6.8 (4.0-10.5) K/mm3 RBC 5.16 (4.1-5.4) M/mm3 Hgb 11.4 L (12.0-16.0) gm/dl Hct 37.6 (35-47) % MCV 72.9 L (78-100) fl MCH 22.1 L (26-32) pg MCHC 30.3 L (32-36) g/dl RDW 17.1 H (11.5-14.0) % Plt Count 370 (150-450) K/mm3 MPV 9.8 (7.5-11.0) fl Gran % 57.1 (36.0-66.0) % Eos # (Auto) 0.08 (0-0.5) Absolute Lymphs (auto) 2.21 (1.0-4.6) Absolute Monos (auto) 0.60 (0.0-1.3) Lymphocytes % 32.5 (24.0-44.0) % Monocytes % 8.8 (0.0-12.0) % Eosinophils % 1.2 (0.00-5.0) % Basophils % 0.4 (0.0-0.4) % Absolute Granulocytes 3.88 (1.4-6.9) Basophils # 0.03 (0-0.4) Sodium (137-145) mmol/L Potassium (3.5-5.1) mmol/L Chloride (98-107) mmol/L Carbon Dioxide (22-30) mmol/L Anion Gap (5-15) MEQ/L BUN (7-17) mg/dL Creatinine (0.52-1.04) mg/dL Estimated GFR ML/MIN Glucose (74-106) mg/dL Calcium (8.4-10.2) mg/dL Total Bilirubin (0.2-1.3) mg/dL AST (14-36) U/L ALT (0-35) U/L Alkaline Phosphatase (38-126) U/L Serum Total Protein (6.3-8.2) g/dL Albumin (3.5-5.0) g/dL Beta HCG, Quant mIU/ml Urine Color YELLOW (YELLOW) Urine Appearance CLOUDY (CLEAR) Urine pH 6.0 (5-6) Ur Specific [place] 1.019 (1.005-1.025) Urine Protein NEGATIVE (Negative) Urine Ketones NEGATIVE (NEGATIVE) Urine Blood MODERATE (0-5) Juan/ul Urine Nitrite NEGATIVE (NEGATIVE) Urine Bilirubin NEGATIVE (NEGATIVE) Urine Urobilinogen NEGATIVE (0-1) mg/dL Ur Leukocyte Esterase TRACE (NEGATIVE) Urine WBC (Auto) 3-5 (0-5) /HPF Urine RBC (Auto) 3-5 (0-2) /HPF U Epithel Cells (Auto) NONE (FEW) /HPF Urine Bacteria (Auto) MODERATE (NEGATIVE) /HPF Urine Mucus (Auto) SLIGHT (NEGATIVE) /HPF Urine Culture Reflexed YES (NO) Urine Glucose NEGATIVE (NEGATIVE) mg/dL Urine HCG, Qual POSITIVE (Negative) ABO Group Rh Factor Antibody Screen (NEGATIVE) - Progress Progress: improved Progress Note: Patient reassessed she feels well. No active vaginal bleeding. Ultrasound shows a IUP gestational sac. It is too early to observe an actual fetus. Patient is Rh+. No indication for RhoGam at this time. GC chlamydia and wet prep pending. Urinalysis negative for UTI. We will discharge patient home. Patient agrees to follow-up with her primary care doctor within 48 hours for reevaluation. Portions of this note were created with voice recognition technology. There may be grammatical, spelling, punctuation or sound alike errors 08/13/21 23:02 Counseled pt/family regarding: lab results, diagnosis, need for follow-up, rad results - Departure Departure Disposition: Home Clinical Impression: Threatened miscarriage Condition: Stable Critical Care Time: No Referrals: KOBI NEWMAN NP [Primary Care Provider] - Additional Instructions: Discharge/Care Plan MAREK BARNES was seen on 08/13/21 in the Emergency Room. The patient was counseled regarding Diagnosis,Lab results, Imaging studies, need for follow up and when to return to the Emergency Room. Prescriptions given: Discharge Note I have spoken with the patient and/or caregivers. I have explained the patient's condition, diagnosis and treatment plan based on the information available to me at this time. I have answered the patient's and/or caregiver's questions and addressed any concerns. The patient and/or caregivers have as good understanding of the patient's diagnosis, condition and treatment plan as can be expected at this point. The vital signs have been stable. The patient's condition is stable and appropriate for discharge from the emergency department. The patient will pursue further outpatient evaluation with the primary care physician or other designated or consulting physician as outlined in the discharge instructions. The patient and/or caregivers are agreeable to this plan of care and follow-up instructions have been explained in detail. The patient and/or caregivers have received these instruction. The patient/and or caregivers are aware that any significant change in condition or worsening of symptoms should prompt an immediate return to this or the closest emergency department or call 911.
[2021-08-13 23:08] VITALS: BP 124/76; PULSE 78
[2021-08-13 23:19] LABS: CHLAMYDIA DNA NOT DETECTED (NEGATIVE); GC DNA Probe NOT DETECTED (NEGATIVE)
[2021-08-14 00:16] LABS: Slide Review 1 YES
[2021-08-14 01:01] LABS: Bacteria Moderate; Clue Cells Few
[2021-08-14 01:02] LABS: Red Blood Cells Many; Trichomonas None Seen; White Blood Cells Moderate; Yeast None Seen
--- NOTE | 2021-08-14 08:45 | XRAY ---
Indication: . Spotting. Two-dimensional transabdominal early OB ultrasound performed. Comparison: None for this . Uterus anteverted with a single intrauterine gestational sac measuring 0.72 cm corresponding to 5 weeks 2 days. No pole/heart tones presumed early . No abnormal subchorionic fluid. Left and right ovaries are sonographically unremarkable. No suspicious adnexal mass or free fluid. Impression: Single intrauterine gestational sac measuring 5 weeks 2 days. No pole/heart tones presumed early . Recommend serial beta-hCG and follow-up sonogram regarding viability. Comment: Preliminary report was given.
== END 2021-08-13 23:22 | disposition home or self-care (01) ==
LOC: ED 20:38
DX: O20.0 Threatened abortion (principal)
CPT/HCPCS: 36000; 36415; 76801; 80053; 81001; 84702; 84703; 85025; 86850; 86900; 86901; 87086; 87210; 87491; 87591; 99284

== ENCOUNTER 2021-08-20 14:21 | Emergency (ER) | payer BC ==
[2021-08-20] MEDS ORDERED: MORPHINE SULFATE 4 MG INJ IV ONE (14:29)
[2021-08-20] MEDS ORDERED: Sodium Chloride 0.9% 1000 ML 1,000 ML IV STA (14:29)
[2021-08-20 14:39] VITALS: O2SAT 100
[2021-08-20] MEDS ORDERED: MORPHINE SULFATE 4 MG INJ ONE (14:42)
[2021-08-20] MEDS ORDERED: Sodium Chloride 0.9% 1000 ML 1,000 ML ONE (14:42)
[2021-08-20 15:09] LABS: Absolute Neutrophil Ct (ANC) 6.06 (1.4-6.9); BASOPHIL % 0.5 % (0.0-0.4); Basophil (Absolute #) 0.04 (0-0.4); Eosinophil % 0.6 % (0.00-5.0); Eosinophil (Absolute #) 0.05 (0-0.5); Hematocrit 37.4 % (35-47); Hemoglobin 11.3 gm/dl (12.0-16.0); Lymphocyte (Absolute #) 1.62 (1.0-4.6); Lymphocytes % 19.3 % (24.0-44.0); Mean Cell Volume 73.2 fl (78-100); Mean Corpuscular Hemoglobin 22.1 pg (26-32); Mean Corpuscular Hgb Concent. 30.2 g/dl (32-36); Mean Platelet Volume 10.1 fl (7.5-11.0); Monocyte (Absolute #) 0.64 (0.0-1.3); Monocytes % 7.6 % (0.0-12.0); Platelet Count 288 K/mm3 (150-450); Red Blood Count 5.11 M/mm3 (4.1-5.4); Red Cell Distribution Width 17.7 % (11.5-14.0); White Blood Count 8.4 K/mm3 (4.0-10.5)
[2021-08-20 15:17] LABS: ALBUMIN 4.3 g/dL (3.5-5.0); ALKALINE PHOSPHATASE 56 U/L (38-126); ANION GAP 15.2 MEQ/L (5-15); BLOOD UREA NITROGEN 10 mg/dL (7-17); CHLORIDE 103 mmol/L (98-107); Calcium 9.4 mg/dL (8.4-10.2); Carbon Dioxide 22 mmol/L (22-30); Creatinine 1 0.54 mg/dL (0.52-1.04); EST GLOMERULAR FILTRATION RATE > 60.0 ML/MIN; Glucose 103 mg/dL (74-106); Potassium 3.9 mmol/L (3.5-5.1); SGOT/AST 26 U/L (14-36); SGPT/ALT 19 U/L (0-35); SODIUM 137 mmol/L (137-145); Total Protein 7.4 g/dL (6.3-8.2)
--- NOTE | 2021-08-20 15:28 | ERPHSYRPT ---
- History of Present Illness Time Seen by Provider: 08/20/21 14:25 Source: patient Exam Limitations: no limitations Patient Subjective Stated Complaint: Pt began having abdominal pain and bleeding 3 days ago, pt is 6 weeks and states that she doesn't think she has passed the baby at this time Triage Nursing Assessment: Pt was brought to the ER by her brother, hypertensive, rates pain 9/10, pain to arabella lower abdomen, spotting and bleeding for 11 days and clots for 3 days, pulses normal, has 2 live children and has had 1 miscarriage Physician History: Patient is a 26-year-old female G4, P2 M1 presents to our ED with complaints of vaginal bleeding for 3 days. Patient states she has been spotting for 11 days. Patient had a beta quant completed on the which was 3245. Patient complains of intermittent abdominal cramping. Patient states her pain is rated 9 out of 10. No associated trauma. No fever. No nausea or vomiting. No diarrhea. No rash. Symptoms are mild to moderate in intensity. Symptoms are constant. No specific worsening or improving factors. Patient states is otherwise healthy. She voices no other complaints or concerns at this time. Patient states her LMP was June 20, 2021 Timing/Duration: day(s) Severity: moderate (3 days) Modifying Factors: Improves With: nothing Associated Symptoms: other (Pelvic cramping. Heavy vaginal bleeding.), No nausea, No vomiting, No abdominal pain, No shortness of breath, No fever Allergies/Adverse Reactions: No Known Drug Allergies Allergy (Verified 08/20/21 14:39) Home Medications: Vits W-Ca,Fe,FA(<1Mg) [] 1 tab PO DAILY 08/13/21 [History] Hx Tetanus, Diphtheria Vaccination/Date Given: Yes Hx Influenza Vaccination/Date Given: No Hx Pneumococcal Vaccination/Date Given: No Travel Risk - International Travel Have you traveled outside of the country in past 3 weeks: No - Coronavirus Screening Are you exhibiting any of the following symptoms?: No Close contact with a COVID-19 positive Pt in past 14-21 Days: No - Vaccine Status Have you recieved a Covid-19 vaccination: No - Review of Systems Constitutional: No Symptoms, No Fever, No Chills Eyes: No Symptoms Ears, Nose, & Throat: No Symptoms Respiratory: No Symptoms, No Cough, No Dyspnea Cardiac: No Symptoms, No Chest Pain, No Edema, No Syncope Abdominal/Gastrointestinal: No Symptoms, No Abdominal Pain, No Nausea, No Vomiting, No Diarrhea Genitourinary Symptoms: No Symptoms, No Dysuria Musculoskeletal: No Symptoms, No Back Pain, No Neck Pain Skin: No Symptoms, No Rash Neurological: No Symptoms, No Dizziness, No Focal Weakness, No Sensory Changes Psychological: No Symptoms Endocrine: No Symptoms Hematologic/Lymphatic: No Symptoms Immunological/Allergic: No Symptoms All Other Systems: Reviewed and Negative - Past Medical History Pertinent Past Medical History: No Neurological History: No Pertinent History ENT History: No Pertinent History Cardiac History: No Pertinent History Respiratory History: No Pertinent History Endocrine Medical History: No Pertinent History Musculoskeletal History: No Pertinent History GI Medical History: No Pertinent History History: No Pertinent History Psycho-Social History: No Pertinent History Female Reproductive Disorders: No Pertinent History - Past Surgical History Past Surgical History: Yes Neuro Surgical History: No Pertinent History Cardiac: No Pertinent History Respiratory: No Pertinent History Gastrointestinal: Cholecystectomy Genitourinary: No Pertinent History Female Surgical History: Section Other Surgical History: TONSILS, gallbladder, x 2 - Social History Smoking Status: Never smoker Exposure to second hand smoke: No Drug Use: none Patient Lives Alone: No - Female History Hx Now: Yes Expected Date of Delivery: 04/13/22 - Nursing Vital Signs Nursing Vital Signs: Initial Vital Signs Temperature 98.3 F 08/20/21 14:25 Pulse Rate 90 08/20/21 14:25 Blood Pressure 148/67 08/20/21 14:25 O2 Sat by Pulse Oximetry 100 08/20/21 14:25 Pain Scale Pain Intensity 9 - Physical Exam General Appearance: no apparent distress, alert Eye Exam: PERRL/EOMI, eyes nml inspection Ears, Nose, Throat Exam: normal ENT inspection, TMs normal, pharynx normal, moist mucous membranes Neck Exam: normal inspection, non-tender, supple, full range of motion Respiratory Exam: normal breath sounds, lungs clear, No respiratory distress Cardiovascular Exam: regular rate/rhythm, normal heart sounds, normal peripheral pulses Gastrointestinal/Abdomen Exam: soft, normal bowel sounds, No tenderness, No mass Pelvic Exam: normal external exam, vaginal bleeding (No active vaginal bleeding), other (No vaginal bleeding.) Back Exam: normal inspection, normal range of motion, No CVA tenderness, No vertebral tenderness Extremity Exam: normal inspection, normal range of motion, pelvis stable Neurologic Exam: alert, oriented x 3, cooperative, normal mood/affect, nml cerebellar function, nml station & gait, sensation nml, No motor deficits Skin Exam: normal color, warm, dry, No rash Lymphatic Exam: No adenopathy SpO2 Interpretation: normal SpO2: 100 O2 Delivery: Room Air - Course Nursing assessment & vital signs reviewed: Yes - Radiology Ultrasound Exam Pelvis Ultrasound: discussed w/radiologist (Per the space buyer findings consistent with miscarriage.) Ordered Tests: Active Orders 24 hr Category Date Time Status IV Insertion STAT Care 08/20/21 14:29 Active OB FOLLOW UP PER FETUS [US] Stat Exams 08/20/21 14:30 Taken CBC W DIFF Stat Lab 08/20/21 14:51 Completed CMP Stat Lab 08/20/21 14:51 Received HCG, Quantitative (Inhouse) Stat Lab 08/20/21 14:51 Received Medication Summary Discontinued Medications Generic Name Dose Route Start Last Admin Trade Name Freq PRN Reason Stop Dose Admin Sodium Chloride 1,000 mls @ 999 mls/hr 08/20/21 14:29 08/20/21 14:43 Sodium Chloride 0.9% 1000 Ml IV 08/20/21 15:29 999 mls/hr .Q1H1M STA Administration Sodium Chloride Confirm 08/20/21 14:42 Sodium Chloride 0.9% 1000 Ml Administered 08/20/21 14:43 Dose 1,000 mls @ ud .ROUTE .STK-MED ONE Morphine Sulfate 4 mg 08/20/21 14:29 08/20/21 14:43 Morphine Sulfate 4 Mg Inj IV 08/20/21 14:30 4 mg STAT ONE Administration Morphine Sulfate Confirm 08/20/21 14:42 Morphine Sulfate 4 Mg Inj Administered 08/20/21 14:43 Dose 4 mg .ROUTE .STK-MED ONE Lab/Rad Data: Laboratory Result Diagrams 08/20/21 14:51 08/20/21 14:51 Laboratory Results 08/20/21 08/20/21 08/20/21 Range/Units 14:51 14:51 14:51 WBC (4.0-10.5) K/mm3 RBC (4.1-5.4) M/mm3 Hgb (12.0-16.0) gm/dl Hct (35-47) % MCV (78-100) fl MCH (26-32) pg MCHC (32-36) g/dl RDW (11.5-14.0) % Plt Count (150-450) K/mm3 MPV (7.5-11.0) fl Gran % (36.0-66.0) % Eos # (Auto) (0-0.5) Absolute Lymphs (auto) (1.0-4.6) Absolute Monos (auto) (0.0-1.3) Lymphocytes % (24.0-44.0) % Monocytes % (0.0-12.0) % Eosinophils % (0.00-5.0) % Basophils % (0.0-0.4) % Absolute Granulocytes (1.4-6.9) Basophils # (0-0.4) Sodium 137 (137-145) mmol/L Potassium 3.9 (3.5-5.1) mmol/L Chloride 103 (98-107) mmol/L Carbon Dioxide 22 (22-30) mmol/L Anion Gap 15.2 H (5-15) MEQ/L BUN 10 (7-17) mg/dL Creatinine 0.54 (0.52-1.04) mg/dL Estimated GFR > 60.0 ML/MIN Glucose 103 (74-106) mg/dL Calcium 9.4 (8.4-10.2) mg/dL Total Bilirubin 0.80 (0.2-1.3) mg/dL AST 26 (14-36) U/L ALT 19 (0-35) U/L Alkaline Phosphatase 56 (38-126) U/L Serum Total Protein 7.4 (6.3-8.2) g/dL Albumin 4.3 (3.5-5.0) g/dL Beta HCG, Quant 876.47 mIU/ml ABO Group A Rh Factor POSITIVE Antibody Screen NEGATIVE (NEGATIVE) 08/20/21 Range/Units 14:51 WBC 8.4 (4.0-10.5) K/mm3 RBC 5.11 (4.1-5.4) M/mm3 Hgb 11.3 L (12.0-16.0) gm/dl Hct 37.4 (35-47) % MCV 73.2 L (78-100) fl MCH 22.1 L (26-32) pg MCHC 30.2 L (32-36) g/dl RDW 17.7 H (11.5-14.0) % Plt Count 288 (150-450) K/mm3 MPV 10.1 (7.5-11.0) fl Gran % 72.0 H (36.0-66.0) % Eos # (Auto) 0.05 (0-0.5) Absolute Lymphs (auto) 1.62 (1.0-4.6) Absolute Monos (auto) 0.64 (0.0-1.3) Lymphocytes % 19.3 L (24.0-44.0) % Monocytes % 7.6 (0.0-12.0) % Eosinophils % 0.6 (0.00-5.0) % Basophils % 0.5 (0.0-0.4) % Absolute Granulocytes 6.06 (1.4-6.9) Basophils # 0.04 (0-0.4) Sodium (137-145) mmol/L Potassium (3.5-5.1) mmol/L Chloride (98-107) mmol/L Carbon Dioxide (22-30) mmol/L Anion Gap (5-15) MEQ/L BUN (7-17) mg/dL Creatinine (0.52-1.04) mg/dL Estimated GFR ML/MIN Glucose (74-106) mg/dL Calcium (8.4-10.2) mg/dL Total Bilirubin (0.2-1.3) mg/dL AST (14-36) U/L ALT (0-35) U/L Alkaline Phosphatase (38-126) U/L Serum Total Protein (6.3-8.2) g/dL Albumin (3.5-5.0) g/dL Beta HCG, Quant mIU/ml ABO Group Rh Factor Antibody Screen (NEGATIVE) - Progress Progress: improved Progress Note: Patient reassessed. He improved. No indication for repeat pelvic exam. Patient had a pelvic exam performed approximately 1 week ago. GC chlamydia and wet prep were all negative. We did observe the vulvovaginal area. No active bleeding observed. Patient is Rh+. No indication for RhoGam. Patient had beta quant performed approximately 1 week ago. Her results were 3200. Beta quant today is 876. There is a obvious drop in her beta quant indicating miscarriage. No indication for further work-up at this time. Will discharge home. Patient agrees to follow-up with her primary care doctor within 48 hours for reevaluation. Patient voices no other complaints or concerns at this time. Portions of this note were created with voice recognition technology. There may be grammatical, spelling, punctuation or sound alike errors 08/20/21 15:44 08/20/21 15:48 Counseled pt/family regarding: lab results, diagnosis, need for follow-up, rad results - Departure Departure Disposition: Home Clinical Impression: Miscarriage Condition: Stable Critical Care Time: No Referrals: KOBI NEWMAN VENUE ATTENDANT [Primary Care Provider] - Additional Instructions: Discharge/Care Plan CAMERONMAREK MEDEIROS was seen on 08/20/21 in the Emergency Room. The patient was counseled regarding Diagnosis,Lab results, Imaging studies, need for follow up and when to return to the Emergency Room. Prescriptions given: Discharge Note I have spoken with the patient and/or caregivers. I have explained the patient's condition, diagnosis and treatment plan based on the information available to me at this time. I have answered the patient's and/or caregiver's questions and addressed any concerns. The patient and/or caregivers have as good understanding of the patient's diagnosis, condition and treatment plan as can be expected at this point. The vital signs have been stable. The patient's condition is stable and appropriate for discharge from the emergency department. The patient will pursue further outpatient evaluation with the primary care physician or other designated or consulting physician as outlined in the discha rge instructions. The patient and/or caregivers are agreeable to this plan of care and follow-up instructions have been explained in detail. The patient and/or caregivers have received these instruction. The patient/and or caregivers are aware that any significant change in condition or worsening of symptoms should prompt an immediate return to this or the closest emergency department or call 911.
[2021-08-20 15:40] LABS: ABO TYPING A; Antibody Screen NEGATIVE (NEGATIVE); RH TYPING POSITIVE
[2021-08-20 15:53] VITALS: BP 122/82; PULSE 84
[2021-08-20 16:23] LABS: Slide Review 1 YES
--- NOTE | 2021-08-20 16:30 | XRAY ---
Indication: Bleeding. Ectopic . Two-dimensional transabdominal and transvaginal early OB ultrasound performed. Comparison: August 13, 2021. Previous intrauterine gestational sac is now lower lying with new 1 x 2 mm subchorionic hemorrhage. Mean sac diameter 0.69 cm corresponds to 5 weeks 2 days, unchanged. Again no pole/heart tones. Left and right ovaries remain sonographically unremarkable. No suspicious adnexal mass or free fluid. Impression: Intrauterine gestational sac is now considered low lying with new tiny subchorionic hemorrhage. No progression of and no pole/heart tones. Suspect impending .
== END 2021-08-20 16:01 | disposition home or self-care (01) ==
LOC: ED 14:21
DX: O03.9 Complete or unspecified spontaneous abortion without complication (principal)
CPT/HCPCS: 36000; 36415; 76816; 80053; 84702; 85025; 86850; 86900; 86901; 96360; 96374; 99284; J2270

== ENCOUNTER 2022-08-05 16:45 | Emergency (ER) | payer BC ==
[2022-08-05] MEDS ORDERED: BABY ASPIRIN 81 MG CHEW PO ONE (16:48)
[2022-08-05] MEDS ORDERED: BABY ASPIRIN 81 MG CHEW ONE (17:00)
[2022-08-05] MEDS ORDERED: Sodium Chloride 0.9% 1000 ML 1,000 ML IV SCH (17:00)
--- NOTE | 2022-08-05 17:01 | ERPHSYRPT ---
- History of Present Illness Time Seen by Provider: 08/05/22 16:55 Historian: patient Exam Limitations: no limitations Patient Subjective Stated Complaint: Pt c/o of left sided chest pain for 2 days that radiates to her left arm and left neck Triage Nursing Assessment: Pt brought to the ER by her friend, sriram neri, rates chest pain as 7/10, nausea, denies vomiting, skin n/w/d, pulses normal, doesn't appear to be in any distress Physician History: Patient is a 27-year-old white female who presents with a complaint of left substernal chest pain for 2 days. The substernal pain radiates to the left arm shoulder and left upper chest. It is worse with a deep breath or movement. She also has a cough producing some mucus she has had no fever chills or sweats she has had some shortness of breath. Risk factors include only questionable hyperlipidemia and hypertension with . Timing/Duration: day(s) (2) Activities at Onset: none Quality: pressure, throbbing Location: substernal Chest Pain Radiation: neck, arm, back Severity of Pain-Max: moderate Severity of Pain-Current: moderate Modifying Factors: Improves With: nothing Associated Symptoms: shortness of breath Prior Chest Pain/Cardiac Workup: no prior cardiac workup Nitro Today/Relief: no nitro taken today Aspirin Treatment Today: 325 mg x 1, provided by ED Allergies/Adverse Reactions: No Known Drug Allergies Allergy (Verified 08/05/22 16:57) Home Medications: Fluoxetine HCl 20 mg [Prozac 20 MG] 20 mg PO DAILY 08/05/22 [History] Omeprazole 20 mg PO DAILY 08/05/22 [History] Hx Tetanus, Diphtheria Vaccination/Date Given: Yes Hx Influenza Vaccination/Date Given: No Hx Pneumococcal Vaccination/Date Given: No Travel Risk - International Travel Have you traveled outside of the country in past 3 weeks: No - Coronavirus Screening Are you exhibiting any of the following symptoms?: No - Vaccine Status Have you recieved a Covid-19 vaccination: No - Review of Systems Constitutional: No Fever, No Chills Eyes: No Symptoms Ears, Nose, & Throat: No Symptoms Respiratory: Dyspnea, No Cough Cardiac: Chest Pain, No Edema, No Syncope Abdominal/Gastrointestinal: No Abdominal Pain, No Nausea, No Vomiting, No Diarrhea Genitourinary Symptoms: No Dysuria Musculoskeletal: No Back Pain, No Neck Pain Skin: No Rash Neurological: No Dizziness, No Focal Weakness, No Sensory Changes Psychological: No Symptoms Endocrine: No Symptoms All Other Systems: Reviewed and Negative - Past Medical History Pertinent Past Medical History: No Neurological History: No Pertinent History ENT History: No Pertinent History Cardiac History: No Pertinent History Respiratory History: No Pertinent History Endocrine Medical History: No Pertinent History Musculoskeletal History: No Pertinent History GI Medical History: No Pertinent History History: No Pertinent History Psycho-Social History: No Pertinent History Female Reproductive Disorders: No Pertinent History - Past Surgical History Past Surgical History: Yes Neuro Surgical History: No Pertinent History Cardiac: No Pertinent History Respiratory: No Pertinent History Gastrointestinal: Cholecystectomy Genitourinary: No Pertinent History Female Surgical History: Section Other Surgical History: TONSILS, gallbladder, x 2 - Social History Smoking Status: Never smoker Exposure to second hand smoke: No Drug Use: none Patient Lives Alone: No - Female History Hx Last Menstrual Period: end june Hx Now: No - Nursing Vital Signs Nursing Vital Signs: Initial Vital Signs Temperature 98.2 F 08/05/22 16:48 Pulse Rate 92 H 08/05/22 16:48 Respiratory Rate 20 08/05/22 16:48 Blood Pressure 129/96 08/05/22 16:48 O2 Sat by Pulse Oximetry 100 08/05/22 16:48 Pain Scale Pain Intensity 7 - Physical Exam General Appearance: no apparent distress, alert Eye Exam: PERRL/EOMI, eyes nml inspection Ears, Nose, Throat Exam: normal ENT inspection, moist mucous membranes Neck Exam: normal inspection, non-tender, supple, full range of motion Respiratory Exam: normal breath sounds, lungs clear, No respiratory distress Cardiovascular Exam: regular rate/rhythm, normal heart sounds Gastrointestinal/Abdomen Exam: soft, No tenderness, No mass Back Exam: normal inspection, No CVA tenderness, No vertebral tenderness Extremity Exam: normal inspection, normal range of motion Neurologic Exam: alert, oriented x 3, cooperative, normal mood/affect, sensation nml, No motor deficits Skin Exam: normal color, warm, dry SpO2: 100 - Course Nursing assessment & vital signs reviewed: Yes EKG Interpreted by Me: RATE (86), Sinus Rhythm, NORMAL AXIS, NORMAL INTERVALS, NORMAL QRS, NORMAL ST-T - Radiology Exams Chest X-ray Interpretation: Interpreted by me (Negative) Ordered Tests: Active Orders 24 hr Category Date Time Status Director Of Social Work STAT Care 08/05/22 17:05 Active EKG-ER Only STAT Care 08/05/22 16:48 Active IV Insertion STAT Care 08/05/22 16:48 Active CHEST 1 VIEW (PORTABLE) Stat Exams 08/05/22 16:49 Completed AMYLASE Stat Lab 08/05/22 17:05 Completed CBC W DIFF Stat Lab 08/05/22 17:05 Results CMP Stat Lab 08/05/22 17:05 Completed D-DIMER QUANTITATIVE Stat Lab 08/05/22 17:05 Completed Erythrocyte Sedimentation Rate Stat Lab 08/05/22 17:05 Results LIPASE Stat Lab 08/05/22 17:05 Completed Lactic Acid Stat Lab 08/05/22 17:00 Completed MAGNESIUM Stat Lab 08/05/22 17:05 Completed NT PRO BNP Stat Lab 08/05/22 17:05 Completed TROPONIN Q4H Lab 08/05/22 17:05 Completed TROPONIN Q4H Lab 08/05/22 21:00 Ordered TROPONIN Q4H Lab 08/06/22 01:00 Ordered UA W/RFX CULTURE Stat Lab 08/05/22 17:07 Completed Medication Summary Generic Name Dose Route Start Last Admin Trade Name Freq PRN Reason Stop Dose Admin Sodium Chloride 1,000 mls @ 100 mls/hr 08/05/22 17:00 08/05/22 17:00 Sodium Chloride 0.9% 1000 Ml IV 09/04/22 16:59 100 mls/hr .Q10H MADDIE Administration Discontinued Medications Generic Name Dose Route Start Last Admin Trade Name Freq PRN Reason Stop Dose Admin Aspirin 324 mg 08/05/22 16:48 08/05/22 17:01 Aspirin 81 Mg Tab.Chew PO 08/05/22 16:49 324 mg STAT ONE Administration Aspirin Confirm 08/05/22 17:00 Aspirin 81 Mg Tab.Chew Administered 08/05/22 17:01 Dose 324 mg .ROUTE .STK-MED ONE Lab/Rad Data: Laboratory Result Diagrams 08/05/22 17:05 08/05/22 17:05 Laboratory Results 08/05/22 08/05/22 08/05/22 Range/Units 17:07 17:05 17:05 WBC (4.0-10.5) x10^3/uL RBC (4.1-5.4) x10^6/uL Hgb (12.0-16.0) g/dL Hct (35-47) % MCV (78-100) fL MCH (26-32) pg MCHC (32-36) g/dL RDW (11.5-14.0) % Plt Count (150-450) x10^3/uL MPV (7.5-11.0) fL Gran % (36.0-66.0) % Immature Gran % (Auto) (0.00-0.4) % Nucleat RBC Rel Count (0.00-0.1) % Eos # (Auto) (0-0.5) x10^3/uL Immature Gran # (Auto) (0.00-0.03) x10^3u/L Absolute Lymphs (auto) (1.0-4.6) x10^3/uL Absolute Monos (auto) (0.0-1.3) x10^3/uL Absolute Nucleated RBC (0.00-0.01) x10^3u/L Lymphocytes % (24.0-44.0) % Monocytes % (0.0-12.0) % Eosinophils % (0.00-5.0) % Basophils % (0.0-0.4) % Absolute Granulocytes (1.4-6.9) x10^3/uL Basophils # (0-0.4) x10^3/uL ESR D-Dimer 0.47 (0.0-0.50) mg/L Sodium (137-145) mmol/L Potassium (3.5-5.1) mmol/L Chloride (98-107) mmol/L Carbon Dioxide (22-30) mmol/L Anion Gap (5-15) MEQ/L BUN (7-17) mg/dL Creatinine (0.52-1.04) mg/dL Estimated GFR ML/MIN Glucose (74-106) mg/dL Lactic Acid (0.4-2.0) Calcium (8.4-10.2) mg/dL Magnesium (1.6-2.3) mg/dL Total Bilirubin (0.2-1.3) mg/dL AST (14-36) U/L ALT (0-35) U/L Alkaline Phosphatase (38-126) U/L Troponin I < 0.012 (0.000-0.034) ng/mL NT-Pro-B Natriuret Pep (0-450) pg/mL Serum Total Protein (6.3-8.2) g/dL Albumin (3.5-5.0) g/dL Amylase (30-110) U/L Lipase (23-300) U/L Urinalys Dipstick Clnc MAIN LAB Urine Color YELLOW (YELLOW) Urine Appearance SLIGHTLY CLOUDY (CLEAR) Urine pH 7.5 (5-6) Ur Specific Adrian 1.020 (1.005-1.025) POC Urine Protein Conf TRACE (Negative) Urine Ketones NEGATIVE (NEGATIVE) Urine Nitrite NEGATIVE (NEGATIVE) Urine Bilirubin NEGATIVE (NEGATIVE) Urine Urobilinogen 1 (0-1) mg/dL Urine Leukocytes NEGATIVE (NEGATIVE) Urine WBC (Auto) NONE (0-5) /HPF Urine RBC (Auto) 0-2 (0-2) /HPF U Epithel Cells (Auto) RARE (FEW) /HPF Urine Bacteria (Auto) RARE (NEGATIVE) /HPF Urine RBC NEGATIVE (0-5) Juan/ul Urine Mucus (Auto) SLIGHT (NEGATIVE) /HPF Ur Culture Indicated? NO Urine Glucose NEGATIVE (NEGATIVE) mg/dL 08/05/22 08/05/22 08/05/22 Range/Units 17:05 17:05 17:00 WBC 6.6 (4.0-10.5) x10^3/uL RBC 4.97 (4.1-5.4) x10^6/uL Hgb 9.3 L (12.0-16.0) g/dL Hct 33.5 L (35-47) % MCV 67.4 L (78-100) fL MCH 18.7 L (26-32) pg MCHC 27.8 L (32-36) g/dL RDW 18.4 H (11.5-14.0) % Plt Count 358 (150-450) x10^3/uL MPV 9.5 (7.5-11.0) fL Gran % 61.4 (36.0-66.0) % Immature Gran % (Auto) 0.3 (0.00-0.4) % Nucleat RBC Rel Count 0.0 (0.00-0.1) % Eos # (Auto) 0.09 (0-0.5) x10^3/uL Immature Gran # (Auto) 0.02 (0.00-0.03) x10^3u/L Absolute Lymphs (auto) 2.02 (1.0-4.6) x10^3/uL Absolute Monos (auto) 0.40 (0.0-1.3) x10^3/uL Absolute Nucleated RBC 0.00 (0.00-0.01) x10^3u/L Lymphocytes % 30.4 (24.0-44.0) % Monocytes % 6.0 (0.0-12.0) % Eosinophils % 1.4 (0.00-5.0) % Basophils % 0.5 (0.0-0.4) % Absolute Granulocytes 4.08 (1.4-6.9) x10^3/uL Basophils # 0.03 (0-0.4) x10^3/uL ESR Pending D-Dimer (0.0-0.50) mg/L Sodium 137 (137-145) mmol/L Potassium 4.0 (3.5-5.1) mmol/L Chloride 102 (98-107) mmol/L Carbon Dioxide 24 (22-30) mmol/L Anion Gap 14.3 (5-15) MEQ/L BUN 9 (7-17) mg/dL Creatinine 0.55 (0.52-1.04) mg/dL Estimated GFR > 60.0 ML/MIN Glucose 148 H (74-106) mg/dL Lactic Acid 2.1 H (0.4-2.0) Calcium 8.7 (8.4-10.2) mg/dL Magnesium 2.1 (1.6-2.3) mg/dL Total Bilirubin 0.40 (0.2-1.3) mg/dL AST 24 (14-36) U/L ALT 25 (0-35) U/L Alkaline Phosphatase 67 (38-126) U/L Troponin I (0.000-0.034) ng/mL NT-Pro-B Natriuret Pep 23.0 (0-450) pg/mL Serum Total Protein 7.7 (6.3-8.2) g/dL Albumin 4.3 (3.5-5.0) g/dL Amylase 86 (30-110) U/L Lipase 102 (23-300) U/L Urinalys Dipstick Clnc Urine Color (YELLOW) Urine Appearance (CLEAR) Urine pH (5-6) Ur Specific Adrian (1.005-1.025) POC Urine Protein Conf (Negative) Urine Ketones (NEGATIVE) Urine Nitrite (NEGATIVE) Urine Bilirubin (NEGATIVE) Urine Urobilinogen (0-1) mg/dL Urine Leukocytes (NEGATIVE) Urine WBC (Auto) (0-5) /HPF Urine RBC (Auto) (0-2) /HPF U Epithel Cells (Auto) (FEW) /HPF Urine Bacteria (Auto) (NEGATIVE) /HPF Urine RBC (0-5) Juan/ul Urine Mucus (Auto) (NEGATIVE) /HPF Ur Culture Indicated? Urine Glucose (NEGATIVE) mg/dL - Progress Progress: unchanged Air Movement: good Blood Culture(s) Obtained: No Antibiotics given: No - Departure Departure Disposition: Home Clinical Impression: Pleurisy Condition: Stable Critical Care Time: No Referrals: KOBI NEWMAN NP [Primary Care Provider] - Follow up/PCP as directed Instructions: Pleuritic Chest Pain (DC) Prescriptions: Diclofenac Sodium 50 mg [Voltaren 50 mg] 50 mg PO Q8H 7 Days #21 tablet
--- NOTE | 2022-08-05 17:05 | XRAY ---
Indication: Chest pain 2 days. Comparison: January 16, 2017 Portable chest again demonstrates normal heart, lungs, and bony thorax.
[2022-08-05 17:13] LABS: Appearance SLIGHTLY CLOUDY (CLEAR); Bilirubin NEGATIVE (NEGATIVE); Glucose NEGATIVE (NEGATIVE); Ketones NEGATIVE (NEGATIVE)
[2022-08-05 17:14] LABS: Dipstick done @ ? MAIN LAB; Nitrite NEGATIVE (NEGATIVE); Ph 7.5 (5-6); Protein,Urine Dip TRACE (Negative); RBC NEGATIVE Ery/ul (0-5); Urobilinogen 1 mg/dL (0-1)
[2022-08-05 17:15] LABS: Bacteria RARE /HPF (NEGATIVE); Epithelial Cells RARE /HPF (FEW); Mucus SLIGHT /HPF (NEGATIVE); RBC 0-2 /HPF (0-2); Urine Cultured Indicated? NO
[2022-08-05 17:22] LABS: Absolute Neutrophil Ct (ANC) 4.08 x10^3/uL (1.4-6.9); Basophil (Absolute #) 0.03 x10^3/uL (0-0.4); Eosinophil % 1.4 % (0.00-5.0); Eosinophil (Absolute #) 0.09 x10^3/uL (0-0.5); Hematocrit 33.5 % (35-47); Hemoglobin 9.3 g/dL (12.0-16.0); Lymphocyte (Absolute #) 2.02 x10^3/uL (1.0-4.6); Lymphocytes % 30.4 % (24.0-44.0); Mean Cell Volume 67.4 fL (78-100); Mean Corpuscular Hemoglobin 18.7 pg (26-32); Mean Corpuscular Hgb Concent. 27.8 g/dL (32-36); Mean Platelet Volume 9.5 fL (7.5-11.0); Neutrophil % 61.4 % (36.0-66.0); Platelet Count 358 x10^3/uL (150-450); Red Blood Count 4.97 x10^6/uL (4.1-5.4); Red Cell Distribution Width 18.4 % (11.5-14.0); White Blood Count 6.6 x10^3/uL (4.0-10.5)
[2022-08-05 17:38] LABS: ALBUMIN 4.3 g/dL (3.5-5.0); ALKALINE PHOSPHATASE 67 U/L (38-126); AMYLASE 86 U/L (30-110); ANION GAP 14.3 MEQ/L (5-15); BLOOD UREA NITROGEN 9 mg/dL (7-17); CHLORIDE 102 mmol/L (98-107); Calcium 8.7 mg/dL (8.4-10.2); Carbon Dioxide 24 mmol/L (22-30); Creatinine 1 0.55 mg/dL (0.52-1.04); EST GLOMERULAR FILTRATION RATE > 60.0 ML/MIN; Glucose 148 mg/dL (74-106); LIPASE 102 U/L (23-300); MAGNESIUM 2.1 mg/dL (1.6-2.3); SGOT/AST 24 U/L (14-36); SGPT/ALT 25 U/L (0-35); SODIUM 137 mmol/L (137-145); Total Protein 7.7 g/dL (6.3-8.2)
[2022-08-05 18:17] LABS: Erythrocyte Sedimentation Rate 32 mm/hr (0-20)
[2022-08-05 18:19] VITALS: BP 116/67; PULSE 84
[2022-08-05 18:20] VITALS: O2SAT 100
[2022-08-05 18:53] LABS: Slide Review 1 YES
== END 2022-08-05 18:26 | disposition home or self-care (01) ==
LOC: ED 16:45
DX: R09.1 Pleurisy (principal); R05.9 Cough, unspecified; R06.02 Shortness of breath; Z79.899 Other long term (current) drug therapy; Z28.310 Unvaccinated for COVID-19
CPT/HCPCS: 36000; 36415; 71045; 80053; 81015; 82150; 83605; 83690; 83735; 83880; 84484; 85025; 85379; 85652; 93005; 93041; 99284; A9270-GY